=== PATIENT | female | born 1955 | race Caucasian/White ===

== ENCOUNTER 2017-03-01 20:53 | Inpatient (IN) | payer OTHER ==
[2017-03-01 20:55] VITALS: O2SAT 99
[2017-03-01] MEDS ORDERED: ceFAZolin 2 GM PREMIX 50 ML ONE (20:57)
[2017-03-01 21:01] VITALS: O2SAT 99
--- NOTE | 2017-03-01 21:08 | PD ---
HPI Chief Complaint: trauma alert Time Seen by Provider: 20:54 Travel History International Travel<30 days: No Contact w/Intl Traveler<30days: No History of Present Illness HPI The patient is a reportedly 61-year-old female who presents to the [facility] emergency department as a trauma alert after she fell at a local restaurant after standing up. According to bystanders it appeared that she passed out. The patient had been drinking alcohol. The patient was unresponsive at the scene with a GCS of 3 upon ambulance services arrival. The patient was provided supplemental nasal cannula O2 and maintained her saturations at 98-99%. The patient was noted to be hypertensive with a blood pressure 168/96 prior to arrival. The patient's blood sugar was reportedly within normal limits. The patient was placed in full C-spine immobilization on a backboard. A family member at the restaurant reported that the patient does have a history of aneurysms. In route to this facility, the patient became awake and alert although confused according to ambulance services. She was repeatedly saying, "don't let me ". On arrival, the patient becomes more awake and alert again and reports that she has a severe headache. The patient then developed a decreased level of consciousness again. Review of systems is not able to be obtained in this patient who has a decreased level of consciousness. [facility] Past Medical History Narrative Medical The patient's past medical history is reportedly significant for having a cerebral aneurysm. As the patient was observed in the emergency department, she became more awake and alert. The patient was able to recall her history. She reports that she has been diagnosed with 2 cerebral aneurysms that are being monitored for growth. She denies having any other history of hypertension, hyperlipidemia, diabetes, or prior history of cancer. The patient reports that she prefers natural remedies for treatment of medical problems. Past Surgical History Narrative Surgical The patient's past surgical history is unable to be obtained. As the patient became more awake and alert she was able to provide her history. She reports that she's had a history of a hysterectomy, rectocele and cystocele repair, bilateral foot surgery. Social History Alcohol Use: Yes (occasionally, however today she reports that she had one bourbon, and 2 glasses of wine) Tobacco Use: No Substance Use: No Allergies-Medications (Allergen,Severity, Reaction): Coded Allergies: Penicillins (Verified Allergy, Unknown, 03/01/17) Narrative Medication The patient reports that she takes multiple vitamins. She denies taking any prescribed medications. Review of Systems ROS Limitations: Intoxication, Altered Mental Status Physical Exam Narrative General: The patient is a well-developed well-nourished female in no acute distress. The patient is brought in on a back board in full c-spine immobilization by emergency services. Head and Neck exam: Head is normocephalic with evidence of trauma, hematoma formation over the left lateral eyebrow and over the left forehead. No step-off or crepitus. She does wince on palpation of the site. There is no increased facial bone motility on palpation. Eyes: EOMI, pupils are equal round and reactive to light. Nose: Midline septum with pink mucous membranes Mouth: Dentition unremarkable. Moist mucus membranes. Posterior oropharynx is not erythematous. No tonsillar hypertrophy. Uvula midline. Airway patent. Neck: The patient is immobilized in a cervical collar. No tracheal deviation. The trachea appears midline. Cardiovascular: Sinus tachycardia in the low 100s without murmurs, gallops, or rubs. No pulse deficit to the extremities on simultaneous auscultation and palpation of her radial artery. Lungs: Clear to auscultation bilaterally. No wheezes, rhonchi, or rales. No chest wall tenderness to palpation. No erythema or ecchymosis noted. No crepitus , step off, or flail segment noted. Abdomen: Soft, without tenderness to palpation in all 4 quadrants of the abdomen. No guarding, rebound, or rigidity. No erythema or ecchymosis noted. Extremities: No instability or pain noted on pelvic rock. No clubbing, cyanosis , or edema. 2+ pulses in all 4 extremities. No extremity tenderness or deformity noted on palpation or passive/ active range of motion. Back: The patient was log rolled off of the back board. No spinous process tenderness to palpation. No stepoff or crepitus noted. No costovertebral angle tenderness to palpation. No erythema or ecchymosis. Neurologic Exam: The patient has waxing and waning mentation. The patient occasionally awakens and moves all extremities equally with 5 over 5 strength. Initially, the patient had difficulty recalling her name, however she was later able to recall her first and last name. The patient is otherwise uncooperative with formal neurologic testing. The patient has an odor of alcohol about her. Skin Exam: No rash noted. Data Data Last Documented VS Vital Signs Date Time Temp Pulse Resp B/P (MAP) Pulse Ox O2 Delivery O2 Flow Rate FiO2 03/01/17 22:30 97 16 166/93 (117) 99 Nasal Cannula 2.00 Orders Orders I-Stat Profile (03/01/17 20:55) I-Stat Creatinine (03/01/17 20:55) Complete Blood Count With Diff (03/01/17 20:55) Prothrombin Time / Inr (Pt) (03/01/17 20:55) Act Partial Throm Time (Ptt) (03/01/17 20:55) Type And Screen (03/01/17 20:55) Fibrinogen (03/01/17 20:55) Alcohol (Ethanol) (03/01/17 20:55) Urinalysis - C+S If Indicated (03/01/17 20:55) Chest, Single Ap (03/01/17 20:55) Pelvis, Ap Only (Routine) (03/01/17 20:55) Ct Brain W/O Iv Contrast(Rout) (03/01/17 20:55) Ct Cerv Spine W/O Contrast (03/01/17 20:55) Ct Thorax/ Chest W Iv Contrast (03/01/17 20:55) Electrocardiogram (03/01/17 20:55) Iv Access Insert/Monitor (03/01/17 20:55) Ecg Monitoring (03/01/17 20:55) Oximetry (03/01/17 20:55) Oxygen Administration (03/01/17 20:55) Cefazolin 2 Gm Premix (Ancef 2 Gm Premix (03/01/17 20:57) Creatine Kinase (Cpk) (03/01/17 20:58) Troponin I (03/01/17 20:58) Hepatic Functional Panel (03/01/17 20:58) Ckmb (Isoenzyme) Profile (03/01/17 20:58) Ct Facial Bones W/O Iv Cont (03/01/17 21:05) Iohexol 350 Inj (Omnipaque 350 Inj) (03/01/17 21:18) Azithromycin Inj (Zithromax Inj) (03/01/17 22:45) Admit Order (Ed Use Only) (03/01/17 22:53) Labs Laboratory Tests Test 03/01/17 21:00 White Blood Count 8.9 TH/MM3 Red Blood Count 4.70 MIL/MM3 Hemoglobin 14.7 GM/DL Bedside Hemoglobin 14.6 G/DL Hematocrit 42.6 % Bedside Hematocrit 43.0 % Mean Corpuscular Volume 90.6 FL Mean Corpuscular Hemoglobin 31.1 PG Mean Corpuscular Hemoglobin Concent 34.4 % Red Cell Distribution Width 14.3 % Platelet Count 385 TH/MM3 Mean Platelet Volume 7.2 FL Neutrophils (%) (Auto) 42.3 % Lymphocytes (%) (Auto) 41.7 % Monocytes (%) (Auto) 10.0 % Eosinophils (%) (Auto) 4.0 % Basophils (%) (Auto) 2.0 % Neutrophils # (Auto) 3.8 TH/MM3 Lymphocytes # (Auto) 3.7 TH/MM3 Monocytes # (Auto) 0.9 TH/MM3 Eosinophils # (Auto) 0.4 TH/MM3 Basophils # (Auto) 0.2 TH/MM3 CBC Comment DIFF FINAL Differential Comment Prothrombin Time 10.0 SEC Prothromb Time International Ratio 1.0 RATIO Activated Partial Thromboplast Time 27.6 SEC Fibrinogen 548 mg/dL Bedside Sodium 140 MMOL/L Bedside Potassium 3.9 MMOL/L Bedside Chloride 107 MMOL/L Bedside Blood Urea Nitrogen 7 MG/DL Bedside Creatinine 0.8 MG/DL Bedside Glucose 107 MG/DL Total Bilirubin 0.2 MG/DL Direct Bilirubin 0.1 MG/DL Indirect Bilirubin 0.1 MG/DL Aspartate Amino Transf (AST/SGOT) 19 U/L Alanine Aminotransferase (ALT/SGPT) 24 U/L Alkaline Phosphatase 103 U/L Total Creatine Kinase 90 U/L Troponin I LESS THAN 0.02 NG/ML Total Protein 8.2 GM/DL Albumin 3.6 GM/DL Ethyl Alcohol Level 245 MG/DL [facility] Medical Screen Exam Complete: Yes Emergency Medical Condition: Yes Medical Record Reviewed: Yes Interpretation(s) Vital Signs Date Time Temp Pulse Resp B/P (MAP) Pulse Ox O2 Delivery O2 Flow Rate FiO2 03/01/17 21:23 98 Nasal Cannula 2.00 03/01/17 21:22 98 Nasal Cannula 2.00 Differential Diagnosis Intracranial hemorrhage, versus vasovagal syncope, versus facial bone fracture, versus cervical spine injury, versus cardiac arrhythmia causing syncope Narrative Course During the course of the patients emergency department visit, the patient was placed on a court monitor with oximetry and frequent blood pressure monitoring. The patient had IV access obtained and blood work sent for analysis. An i-STAT with creatinine was ordered. The trauma surgeon, Dr. Garcia arrived at the bedside to assess the patient with me. The patient was initially provided normal saline at O, and update to her tetanus, Ancef 2 g IV. The patients laboratory studies were reviewed and remarkable for I-stat reveals a hemoglobin of 14.6 glucose 107, creatinine 0.8, CBC is remarkable for a white count is 8.9, platelets 385 with 10 monocytes, PT PTT within normal limits, fibrinogen 548, alcohol level is 245, liver function tests are within normal limits, CPK 90, troponin I less than 0.02. An ECG was done that shows a sinus rhythm heart rate of 98, QRS duration 86 ms, QTC 427 ms, no acute ST segment elevation, T waves are inverted in lead 3. Radiology studies were reviewed and remarkable for a chest x-ray, pelvis x-ray that showed no acute abnormality. CT scan of the brain that showed no acute abnormality, except a left frontal supraorbital soft tissue hematoma. CT scan of the C-spine showed degenerative changes, no other acute abnormality. CT scan of the chest shows slight bilateral upper lobe infiltrates and/or contusions, repeat non-contrast CT is suggested 3 months as a conservative follow-up. On further questioning of the patient after CT scan finding shows traits and bilateral upper lung brennan she does report that over the last 2 weeks she's had cough, congestion. He reports that her cough is been dry in character. She denies having any known fevers. The patient will be treated with azithromycin for possible underlying pneumonia. The patient has been cleared by trauma surgery for trauma requiring admission to the hospital, however the patient will be admitted to the hospital for evaluation of syncopal event to the medical service. The patients results were discussed with the patient, including the plan of care. I explained that further testing and/ or monitoring is indicated based on the patients history, examination, and/ or laboratory findings. Therefore, I recommended admission for additional evaluation. The patient expressed understanding and was agreeable with this plan. The patient was admitted to the hospital in stable condition and [facility] I was called back into the room by the patient's nurse to reassess the patient when the patient reported having weakness initially in her left upper extremity and left lower extremity, however she then reported weakness also in the right upper extremity. The patient's reported concerned that she may be experiencing an allergic reaction to the Zithromax as it was a few minutes into infusing. The Zithromax was stopped. The patient was reassessed and had periods of waxing and waning mentation again where she appeared to be unresponsive. The patient also appeared to be holding her breath intermittently although she was maintaining her sats at 99-100%. The patient on reexamination when she was awake again, revealed no focal findings. The patient does however have a history of cerebral aneurysm, I discussed the patient's case again with the patient's admitting physician was made aware of these symptoms. She did agree with the plan to proceed with CTA of the head and neck. 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 CTA of the neck showed no acute abnormality. Trauma Alert - Level One Trauma Alert Level One: Full trauma team activate, Patient evaluated, Trauma surgeon summoned Time Surgeon Summoned: 20:35 (Surgeon asked to come in) Physician Communication The patient's case including history, pertinent physical examination findings, and laboratory studies were discussed with Dr. Stallings. It was agreed that [facility] Diagnosis Diagnosis: Primary Impression: Syncope Qualified Codes: R55 - Syncope and collapse Additional Impressions: Head injury Qualified Codes: S09.90XA - Unspecified injury of head, initial encounter Lung infiltrate on CT Alcohol intoxication Qualified Codes: F10.929 - Alcohol use, unspecified with intoxication, unspecified Altered mental status Qualified Codes: R41.0 - Disorientation, unspecified Admitting Physician Requests: Observation Moon Ortiz MD Mar 01, 2017 21:08
--- NOTE | 2017-03-01 21:10 | RADRPT ---
EXAM DATE/TIME: 03/01/2017 20:56 [facility] COMPARISON: No previous studies available for comparison. INDICATIONS : Trauma alert. Fall from a standing position. MEDICAL HISTORY : Unobtainable. SURGICAL HISTORY : Unobtainable. ENCOUNTER: Initial ACUITY: 1 day PAIN SCORE: Non-responsive. LOCATION: Pelvis. FINDINGS: No definite fractures, or dislocations are identified. No definite lytic or sclerotic lesion is seen . CONCLUSION: Unremarkable study. Pablo Tee MD on March 01, 2017 at 21:08 Board Certified Radiologist. This report was verified electronically.
--- NOTE | 2017-03-01 21:10 | RADRPT ---
EXAM DATE/TIME: 03/01/2017 20:56 [facility] COMPARISON: No previous studies available for comparison. INDICATIONS : Trauma alert. Fall from standing position. MEDICAL HISTORY : Unobtainable. SURGICAL HISTORY : Unobtainable. ENCOUNTER: Initial ACUITY: 1 day PAIN SCORE: Non-responsive. LOCATION: Bilateral chest FINDINGS: The lungs are clear without infiltrate, nodule, or mass. There is no appreciable pleural effusion fo r technique. Heart and mediastinum are unremarkable. CONCLUSION: No acute cardiopulmonary disease. Pablo Tee MD on March 01, 2017 at 21:07 Board Certified Radiologist. This report was verified electronically.
--- NOTE | 2017-03-01 21:15 | RADRPT ---
EXAM DATE/TIME: 03/01/2017 21:05 [facility] COMPARISON: No previous studies available for comparison. INDICATIONS : Trauma; fall. RADIATION DOSE: 53.88 CTDIvol (mGy) MEDICAL HISTORY : Non-responsive. SURGICAL HISTORY : Non-responsive. ENCOUNTER: Initial ACUITY: 1 day PAIN SCALE: Non-responsive LOCATION: cranial TECHNIQUE: Multiple contiguous axial images were obtained of the head. Using automated exposure control and adjustment of the mA and/or kV according to patient size, radiation dose was kept as low as reasonably achievable to obtain optimal diagnostic quality images. DICOM format image data is av ailable electronically for review and comparison. FINDINGS: There is no evidence for intracranial hemorrhage, mass effect, mass lesions, edema, or extra-axial fl uid collections. The visualized bony structures appear intact. The ventricles are normal size for t he patient's age. There are no signs of acute infarction for technique. Approximate 2.8 cm soft tiss ue hematoma is present in the left frontal region. CONCLUSION: Soft tissue hematoma on the left, otherwise unremarkable. Pablo Tee MD on March 01, 2017 at 21:12 Board Certified Radiologist. This report was verified electronically.
[2017-03-01] MEDS ORDERED: IOHEXOL 350 MG/ML 10 ML VIAL (for RAD DIAG) IVCONTRAST ONE (21:18)
--- NOTE | 2017-03-01 21:21 | RADRPT ---
EXAM DATE/TIME: 03/01/2017 21:05 [facility] COMPARISON: No previous studies available for comparison. INDICATIONS : Trauma; fall. RADIATION DOSE: 21.48 CTDIvol (mGy) MEDICAL HISTORY : Non-responsive. SURGICAL HISTORY : Non-responsive. ENCOUNTER: Initial ACUITY: 1 day PAIN SCALE: Non-responsive LOCATION: neck TECHNIQUE: Volumetric scanning of the cervical spine was performed. Multiplanar reconstructions in the sagittal, coronal and oblique axial planes were performed. Using automated exposure control and adjustment o f the mA and/or kV according to patient size, radiation dose was kept as low as reasonably achievable to obtain optimal diagnostic quality images. DICOM format image data is available electronically f or review and comparison. FINDINGS: No significant subluxation or soft tissue swelling is seen. No definite fracture is seen for techniqu e. C2-C3: No appreciable compromised to the thecal sac, exiting nerve roots are seen. The neural elif ana are patent bilaterally. No appreciable thecal sac stenosis is seen. C3-C4: No appreciable compromised to the thecal sac, exiting nerve roots are seen. The neural elif ana are patent bilaterally. No appreciable thecal sac stenosis is seen. C4-C5: No appreciable compromised to the thecal sac, exiting nerve roots are seen. The neural elif ana are patent bilaterally. No appreciable thecal sac stenosis is seen. C5-C6: No appreciable compromised to the thecal sac, exiting nerve roots are seen. The neural elif ana are patent bilaterally. No appreciable thecal sac stenosis is seen. Slight degenerative changes are seen within the disc space and facets. Slight bulging disc and hypertrophic changes are seen with indentation on the thecal sac and no significant compromise to the thecal sac or the exiting nerve r oots. C6-C7: No appreciable compromised to the thecal sac, exiting nerve roots are seen. The neural elif ana are patent bilaterally. No appreciable thecal sac stenosis is seen. C7-T1: No appreciable compromised to the thecal sac, exiting nerve roots are seen. The neural elif ana are patent bilaterally. No appreciable thecal sac stenosis is seen CONCLUSION: Slight degenerative spondylosis without any significant compromise to the thecal sac or the exiting nerve roots. Pablo Tee MD on March 01, 2017 at 21:16 Board Certified Radiologist. This report was verified electronically.
--- NOTE | 2017-03-01 21:26 | RADRPT ---
EXAM DATE/TIME: 03/01/2017 21:13 [facility] COMPARISON: No previous studies available for comparison. INDICATIONS : Trauma; fall. IV CONTRAST: 75 cc Omnipaque 350 (iohexol) IV RADIATION DOSE: 7.36 CTDIvol (mGy) MEDICAL HISTORY : Non-responsive. SURGICAL HISTORY : Non-responsive. ENCOUNTER: Initial ACUITY: 1 day PAIN SCALE: Non-responsive LOCATION: chest TECHNIQUE: Volumetric scanning of the chest was performed. Using automated exposure control and adjustment of t he mA and/or kV according to patient size, radiation dose was kept as low as reasonably achievable to obtain optimal diagnostic quality images. DICOM format image data is available electronically for review and comparison. Follow-up recommendations for detected pulmonary nodules are based at a minimum on nodule size and pa tient risk factors according to Fleischner Society Guidelines. FINDINGS: Slight focal infiltrate or contusion is present in right upper lobe posteriorly and lingula. No defi nite fracture is seen for technique. No definite pneumothorax is seen for technique.There is no pleur al effusion. No appreciable pathological adenopathy is seen within the mediastinum. There are simple cysts in the liver the largest measures 1.8 cm in size. CONCLUSION: Slight bilateral upper lobe infiltrates and/or contusions, repeat noncontrast chest C T is suggested in 3 months as a conservative follow up.. Pablo Tee MD on March 01, 2017 at 21:20 Board Certified Radiologist. This report was verified electronically.
--- NOTE | 2017-03-01 21:29 | RADRPT ---
EXAM DATE/TIME: 03/01/2017 21:05 [facility] COMPARISON: No previous studies available for comparison. INDICATIONS : Trauma; fall. RADIATION DOSE: 51.68 CTDIvol (mGy) MEDICAL HISTORY : Non-responsive. SURGICAL HISTORY : Non-responsive. ENCOUNTER: Initial ACUITY: 1 day PAIN SCORE: Non-responsive LOCATION: facial TECHNIQUE: Volumetric scanning of the facial bones was performed. Using automated exposure control and adjustme nt of the mA and/or kV according to patient size, radiation dose was kept as low as reasonably achiev able to obtain optimal diagnostic quality images. DICOM format image data is available electronicall y for review and comparison. FINDINGS: No definite fractures, or dislocations are identified. No definite lytic or sclerotic lesion is seen . Left frontal soft tissue scalp hematoma is identified. CONCLUSION: Left frontal supraorbital soft tissue hematoma. Pablo Tee MD on March 01, 2017 at 21:25 Board Certified Radiologist. This report was verified electronically.
[2017-03-01 21:30] VITALS: BP 167/90; PULSE 113; RESP 16; O2SAT 100
[2017-03-01 21:34] LABS: AUTOMATED NEUTROPHIL # 3.8 TH/MM3 (1.8-7.7); BASOPHIL # 0.2 TH/MM3 (0-0.2); EOSINOPHIL # 0.4 TH/MM3 (0-0.4); HEMATOCRIT 42.6 % (35.0-46.0); HEMOGLOBIN 14.7 GM/DL (11.6-15.3); LYMPH % 41.7 % (9.0-44.0); LYMPHOCYTE # 3.7 TH/MM3 (1.0-4.8); MEAN CELL VOLUME 90.6 FL (80.0-100.0); MEAN CORPUSCULAR HEMOGLOBIN 31.1 PG (27.0-34.0); MEAN CORPUSCULAR HGB CONC 34.4 % (32.0-36.0); MEAN PLATELET VOLUME 7.2 FL (7.0-11.0); MONOCYTE # 0.9 TH/MM3 (0-0.9); NEUT % 42.3 % (16.0-70.0); PLATELET COUNT 385 TH/MM3 (150-450); RED CELL DISTRIBUTION WIDTH 14.3 % (11.6-17.2); WHITE BLOOD COUNT 8.9 TH/MM3 (4.0-11.0)
[2017-03-01 21:59] LABS: ALBUMIN 3.6 GM/DL (3.4-5.0); ALKALINE PHOSPHATASE 103 U/L (45-117); ALT (GPT) 24 U/L (10-53); AST (GOT) 19 U/L (15-37); DIRECT BILIRUBIN ADULT 0.1 MG/DL (0.0-0.2); INDIRECT BILIRUBIN 0.1 MG/DL (0.0-0.8); TOTAL BILIRUBIN ADULT 0.2 MG/DL (0.2-1.0); TOTAL PROTEIN 8.2 GM/DL (6.4-8.2); TROPONIN I LESS THAN 0.02 NG/ML (0.02-0.05)
[2017-03-01 22:11] VITALS: BP 177/99; PULSE 100; RESP 16; O2SAT 96
[2017-03-01 22:30] VITALS: BP 166/93; PULSE 97; RESP 16; O2SAT 99
[2017-03-01] MEDS ORDERED: AZITHROMYCIN INJ 500 MG in SODIUM CHLOR 0.9% 250 ML INJ 250 ML IV ONE (22:45)
--- NOTE | 2017-03-01 22:57 | HHI.HP ---
HPI Service [facility] Primary Care Physician Unknown Admission Diagnosis Syncope, bilateral lung infiltrates Diagnoses: (1) Syncope Diagnosis: Principal (2) Closed head injury Diagnosis: Principal (3) Alcohol intoxication Diagnosis: Principal (4) PNA (pneumonia) Diagnosis: Principal (5) Syncope Diagnosis: Principal (6) Upper extremity weakness Diagnosis: Principal Travel History International Travel<30 Days: No Contact w/Intl Traveler <30 Da: No History of Present Illness This is a 61-year-old female with a PMH of Cerebral Aneurysm who was brought to the ER as a Trauma Alert after fall from standing position. Pt was apparently out having dinner with and noted to have syncopal event upon standing. +Alcohol intoxication, Alcohol 245. No reported seizure-like activity. Upon EMS arrival, pt unresponsive, not following commands, however mental status back to baseline upon arrival to ER. CT Head w/ soft tissue hematoma on the left, CT C-spine no acute compromise. CT Maxillofacial with left frontal supraorbital soft tissue hematoma. CXR with no acute findings. CT Chest with slight bilateral upper lobe infiltrate and or contusions, recommendation for three-month follow-up. Pelvis X-ray unremarkable. Patient was evaluated by Dr. Rockwell and cleared for discharge from a trauma standpoint. While in ER, pt and report acute episode of "paralysis" to bilateral upper extremities after receiving Zithro IV. states pt had similar event following Propofol for Colonoscopy. On exam, pt not answering questions or following commands, hyperventilating. Episode lasted few minutes, now pt back to baseline, able to converse, no neuro deficits. CTA Head pending. Review of Systems Except as stated in HPI: all other systems reviewed are Neg ROS: 14 point review of systems otherwise negative. Past Family Social History Past Medical History PMH: Cerebral Aneurysm Past Surgical History PAST SURGICAL HISTORY: Hysterectomy, Rectocele, Cystocele, Bilateral Foot Surgery Allergies: Coded Allergies: Penicillins (Verified Allergy, Unknown, 03/01/17) Family History PAST FAMILY HISTORY: Reviewed. No h/o DM or CAD Social History PAST SOCIAL HISTORY: Occasional alcohol, 2-3 glasses of wine and glass of bourbon tonight. Negative for tobacco or drugs. Physical Exam Vital Signs Vital Signs Date Time Temp Pulse Resp B/P (MAP) Pulse Ox O2 Delivery O2 Flow Rate FiO2 03/01/17 22:11 100 16 177/99 (125) 96 Room Air 03/01/17 21:23 98 Nasal Cannula 2.00 03/01/17 21:22 98 Nasal Cannula 2.00 03/01/17 21:01 99 3.00 03/01/17 20:55 99 3.00 03/01/17 20:55 99 Nasal Cannula 3.00 Physical Exam PE: GENERAL: Middle-aged white female in no acute distress, however tearful, reports she is cold. at bedside. HEENT: PERRLA, EOMI. No scleral icterus or conjunctival pallor. No lid lag or facial droop. Left forehead hematoma CARDIOVASCULAR: Regular rate and rhythm. No obvious murmurs to auscultation. No chest tenderness to palpation. RESPIRATORY: No obvious rhonchi or wheezing. Clear to auscultation. Breath sounds equal bilaterally. GASTROINTESTINAL: Abdomen soft, non-tender, nondistended. BS normal. MUSCULOSKELETAL: Extremities without clubbing, cyanosis, or edema. No obvious deformities. NEUROLOGICAL: Awake, alert and oriented x4. No focal neurologic deficits. Moving both upper and lower extremities spontaneously. Laboratory Laboratory Tests Test 03/01/17 21:00 White Blood Count 8.9 Red Blood Count 4.70 Hemoglobin 14.7 Bedside Hemoglobin 14.6 Hematocrit 42.6 Bedside Hematocrit 43.0 Mean Corpuscular Volume 90.6 Mean Corpuscular Hemoglobin 31.1 Mean Corpuscular Hemoglobin Concent 34.4 Red Cell Distribution Width 14.3 Platelet Count 385 Mean Platelet Volume 7.2 Neutrophils (%) (Auto) 42.3 Lymphocytes (%) (Auto) 41.7 Monocytes (%) (Auto) 10.0 Eosinophils (%) (Auto) 4.0 Basophils (%) (Auto) 2.0 Neutrophils # (Auto) 3.8 Lymphocytes # (Auto) 3.7 Monocytes # (Auto) 0.9 Eosinophils # (Auto) 0.4 Basophils # (Auto) 0.2 CBC Comment DIFF FINAL Differential Comment Prothrombin Time 10.0 Prothromb Time International Ratio 1.0 Activated Partial Thromboplast Time 27.6 Fibrinogen 548 Bedside Sodium 140 Bedside Potassium 3.9 Bedside Chloride 107 Bedside Blood Urea Nitrogen 7 Bedside Creatinine 0.8 Bedside Glucose 107 Total Bilirubin 0.2 Direct Bilirubin 0.1 Indirect Bilirubin 0.1 Aspartate Amino Transf (AST/SGOT) 19 Alanine Aminotransferase (ALT/SGPT) 24 Alkaline Phosphatase 103 Total Creatine Kinase 90 Troponin I LESS THAN 0.02 Total Protein 8.2 Albumin 3.6 Ethyl Alcohol Level 245 Result Diagram: 03/01/172099 Caprini VTE Risk Assessment Caprini VTE Risk Assessment: No/Low Risk (score <= 1) Caprini Risk Assessment Model Point Value = 1 Point Value = 2 Point Value = 3 Point Value = 5 Age 41-60 Minor surgery BMI > 25 kg/m2 Swollen legs Varicose veins or History of unexplained or recurrent spontaneous Oral contraceptives or hormone replacement Sepsis (< 1 month) Serious lung disease, including pneumonia (< 1 month) Abnormal pulmonary function Acute myocardial infarction Congestive heart failure (< 1 month) History of inflammatory bowel disease Medical patient at bed rest Age 61-74 Arthroscopic surgery Major open surgery (> 45 min) Laparoscopic surgery (> 45 min) Malignancy Confined to bed (> 72 hours) Immobilizing plaster cast Central venous access Age >= 75 History of VTE Family history of VTE Factor V Leiden Prothrombin [id number] Lupus anticoagulant Anticardiolipin antibodies Elevated serum homocysteine Heparin-induced thrombocytopenia Other congenital or acquired thrombophilia Stroke (< 1 month) Elective arthroplasty Hip, pelvis, or leg fracture Acute spinal cord injury (< 1 month) Prophylaxis Regimen Total Risk Factor Score Risk Level Prophylaxis Regimen 0-1 Low Early ambulation 2 Moderate Order ONE of the following: *Sequential Compression Device (SCD) *Heparin 5000 units SQ BID 3-4 Higher Order ONE of the following medications: *Heparin 5000 units SQ TID *Enoxaparin/Lovenox 40 mg SQ daily (WT < 150 kg, CrCl > 30 mL/min) *Enoxaparin/Lovenox 30 mg SQ daily (WT < 150 kg, CrCl > 10-29 mL/min) *Enoxaparin/Lovenox 30 mg SQ BID (WT < 150 kg, CrCl > 30 mL/min) AND/OR *Sequential Compression Device (SCD) 5 or more Highest Order ONE of the following medications: *Heparin 5000 units SQ TID (Preferred with Epidurals) *Enoxaparin/Lovenox 40 mg SQ daily (WT < 150 kg, CrCl > 30 mL/min) *Enoxaparin/Lovenox 30 mg SQ daily (WT < 150 kg, CrCl > 10-29 mL/min) *Enoxaparin/Lovenox 30 mg SQ BID (WT < 150 kg, CrCl > 30 mL/min) AND *Sequential Compression Device (SCD) Assessment and Plan Problem List: (1) Syncope ICD Code: R55 - Syncope and collapse Status: Acute (2) Closed head injury ICD Code: S09.90XA - Unspecified injury of head, initial encounter (3) PNA (pneumonia) ICD Code: J18.9 - Pneumonia, unspecified organism (4) Upper extremity weakness ICD Code: R29.898 - Other symptoms and signs involving the musculoskeletal system (5) Alcohol intoxication ICD Code: F10.929 - Alcohol use, unspecified with intoxication, unspecified Assessment and Plan A/P: 1. Syncope: acute syncopal event upon standing, no h/o similar symptoms. No witnessed seizure-like activity. Initial trop negative, check serial cardiac enzymes to eval for possible underlying ischemia. Check Echo to eval for cardiomyopathy. Telemetry. 2. Closed Head Injury: arrived as Trauma Alert, CT Head w/ left forehead hematoma, CT C-Spine w/ no acute findings, CT Maxillofacial w/ left frontal supraorbital soft tissue hematoma, Pelvic X-ray negative, images reviewed by me. Neuro Checks q4h. Analgesics as needed. 3. PNA: CT Chest w/ bilateral upper lobe infiltrates vs contusions, recommendation for outpatient follow up in 3mo, images reviewed by me. Afebrile , no leukocytosis however pt does report cough and congestion. Possible allergic reaction to Zithro while in ER, will discontinue. Start Levaquin IV instead. 4. Upper Extremity Weakness: Reports acute onset of bilateral upper extremity "paralysis", CT Head negative as above. Pt w/ waxing/waning mentation while in ER, possibly compounded by acute alcohol intoxication or underlying psychiatric condition. No clinical signs of stroke at this time. CTA Head pending in light of h/o previous aneurysm, will follow up results. 5. Alcohol Intoxication: Reports occasional alcohol ingestion, tonight w/ 2-3 glasses of wine and 1 glass of bourbon. IVF for hydration, Ativan prn if needed. 6. DVT Prophylaxis: SCD/Teds. 7. Social work for d/c planning as needed. 8. Records/labs/imaging reviewed by me, case discussed at length w/ ER physician and [employer] HELPER. Physician Certification 2 Midnight Certification Type: Admission for Inpatient Services Order for Inpatient Services The services are ordered in accordance with Medicare regulations or non- Medicare payer requirements, as applicable. In the case of services not specified as inpatient-only, they are appropriately provided as inpatient services in accordance with the 2-midnight benchmark. Estimated LOS (days): 2 days is the estimated time the patient will need to remain in the hospital, assuming treatment plan goals are met and no additional complications. Post-Hospital Plan: Not yet determined Problem Qualifiers (1) Syncope: Qualified Codes: R55 - Syncope and collapse Rosaura Stallings MD Mar 01, 2017 22:57
[2017-03-01 23:00] VITALS: BP 156/89; PULSE 98; RESP 16; O2SAT 99
[2017-03-01] MEDS ORDERED: MORPHINE SULFATE 2 MG/ML INJ IV PUSH PRN (23:00)
[2017-03-01] MEDS ORDERED: SODIUM CHLORIDE 0.9% FLUSH 10 ML FLUSH IV FLUSH PRN (23:00)
[2017-03-01] MEDS ORDERED: BISACODYL 10 MG SUPP RECTAL PRN (23:00)
[2017-03-01] MEDS ORDERED: MAGNESIUM HYDROXIDE SUSP 30 ML CUP PO PRN (23:00)
[2017-03-01] MEDS ORDERED: ACETAMINOPHEN/HYDROcodone 325 MG/5 MG TAB PO PRN (23:00)
[2017-03-01] MEDS ORDERED: ONDANSETRON HCL 4 MG/2 ML VIAL IVP PRN (23:00)
[2017-03-01] MEDS ORDERED: LACTULOSE SYRUP 20 GM/30 ML CUP PO PRN (23:00)
[2017-03-01] MEDS ORDERED: SENNOSIDES 8.6 MG TAB PO PRN (23:00)
[2017-03-02] VITALS (7 sets, daily range): BP systolic 127–197; BP diastolic 75–86; PULSE 82–96; RESP 16–18; TEMP 96.2–97.7; O2SAT 94–98
[2017-03-02] MEDS ORDERED: IOHEXOL 350 MG/ML 10 ML VIAL (for RAD DIAG) IVCONTRAST ONE (00:20)
[2017-03-02] MEDS: SODIUM CHLOR 0.9% 1000 ML INJ 1,000 ML IV SCH ×3 (00:31→21:15)
--- NOTE | 2017-03-02 00:32 | RADRPT ---
EXAM DATE/TIME: 03/01/2017 23:36 [facility] COMPARISON: CT BRAIN W/O CONTRAST, March 01, 2017, 21:05. INDICATIONS : Trauma; fall. IV CONTRAST: 75 cc Omnipaque 350 (iohexol) IV RADIATION DOSE: 10.44 CTDIvol (mGy) ; Combined studies MEDICAL HISTORY : Non-responsive. SURGICAL HISTORY : Non-responsive. ENCOUNTER: Initial ACUITY: 1 day PAIN SCALE: Non-responsive LOCATION: cranial TECHNIQUE: Volumetric scanning was performed using a multi-row detector CT scanner. The data was post processed with a variety of visualization algorithms including full volume maximum intensity projection, multi -planar sliding thin slab reformation, curved planar reformation, and surface rendering techniques. Using automated exposure control and adjustment of the mA and/or kV according to patient size, radiat ion dose was kept as low as reasonably achievable to obtain optimal diagnostic quality images. DICO M format image data is available electronically for review and comparison. 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 No other aneurysms are demonstrated. Intracranial arteries have normal caliber. No stenoses or thrombosis. CONCLUSION: Small basilar tip aneurysm as above. Otherwise normal intracranial arteries. Eric Gunn MD on March 02, 2017 at 0:26 Board Certified Radiologist. This report was verified electronically.
--- NOTE | 2017-03-02 01:01 | RADRPT ---
EXAM DATE/TIME: 03/01/2017 23:37 [facility] COMPARISON: CTA BRAIN W 3D RECON, March 01, 2017, 23:36. CT CERVICAL SPINE W/O CONTRAST, March 01, 2017, 2 1:05. INDICATIONS : Trauma; fall. IV CONTRAST: 75 cc Omnipaque 350 (iohexol) IV ; Cumulative dose for multiple exams. RADIATION DOSE: 10.44 CTDIvol (mGy) ; Combined studies MEDICAL HISTORY : Non-responsive. SURGICAL HISTORY : Non-responsive. ENCOUNTER: Initial ACUITY: 1 day PAIN SCALE: Non-responsive LOCATION: neck Elevated flow velocities and ICA/CCA ratios have been found to correlate with increased degrees of vessel stenosis, calculated as percentage of diameter relative to a normal segment of distal ICA/CCA. TECHNIQUE: Volumetric scanning was performed using a multirow detector CT scanner. The data was post processed with a variety of visualization algorithms including full-volume maximum intensity projection, multip lanar sliding thin-slab reformation, curved-planar reformation, and surface-rendering techniques. Us ing automated exposure control and adjustment of the mA and/or kV according to patient size, radiatio n dose was kept as low as reasonably achievable to obtain optimal diagnostic quality images. DICOM f ormat image data is available electronically for review and comparison. FINDINGS: AORTIC ARCH: There is a three-vessel origin of the great vessels from the aorta. No evidence of ostial narrowing. RIGHT CAROTID: The common carotid artery is intact. The carotid bulb has a normal configuration without ulceration o r narrowing. The internal carotid artery lumen is smooth without stenosis. The external carotid oliva ry is intact. LEFT CAROTID: The common carotid artery is intact. The carotid bulb has a normal configuration without ulceration or narrowing. The internal carotid artery lumen is smooth without stenosis. The external carotid ar melody is intact. VERTEBRALS: The vertebral arteries have a symmetric diameter. No stenotic lesions are seen. CONCLUSION: Normal carotid CTA. Eric Gunn MD on March 02, 2017 at 0:58 Board Certified Radiologist. This report was verified electronically.
[2017-03-02] MEDS ORDERED: AZTREONAM INJ 1,000 MG in SODIUM CHLORIDE 0.9% INJ 100 ML IV SCH (06:00)
[2017-03-02] MEDS: ACETAMINOPHEN 325 MG TAB PO PRN ×2 (07:05→15:31)
--- NOTE | 2017-03-02 07:10 | HHI.PR ---
Subjective Remarks Patient seen and examined this morning. Vitals are stable and afebrile. She denies CP or difficulty breathing. Endorses facial pain. States she needs to go home today because she has two dogs. Doesn't remember what happened yesterday but states she blacked out when she stood from standing. This has never happened to her before. Objective Vital Signs Date Time Temp Pulse Resp B/P (MAP) Pulse Ox O2 Delivery O2 Flow Rate FiO2 03/02/17 04:00 96.5 88 18 127/81 (96) 96 03/02/17 00:00 96.2 96 18 154/76 (102) 98 03/02/17 00:00 03/01/17 23:00 98 16 156/89 (111) 99 Nasal Cannula 2.00 03/01/17 22:30 97 16 166/93 (117) 99 Nasal Cannula 2.00 03/01/17 22:11 100 16 177/99 (125) 96 Room Air 03/01/17 21:30 113 16 167/90 (115) 100 Nasal Cannula 2.00 03/01/17 21:23 98 Nasal Cannula 2.00 03/01/17 21:22 98 Nasal Cannula 2.00 03/01/17 21:01 99 3.00 03/01/17 20:55 99 3.00 03/01/17 20:55 99 Nasal Cannula 3.00 Result Diagram: 03/01/17 2100 Imaging Last Impressions Maxillofacial CT 03/01/172104 Signed Impressions: Service Date/Time: Wednesday, March 01, 2017 21:05 - CONCLUSION: Left frontal supraorbital soft tissue hematoma. Pablo Tee MD Pelvis X-Ray 03/01/172054 Signed Impressions: Service Date/Time: Wednesday, March 01, 2017 20:56 - CONCLUSION: Unremarkable study. Pablo Tee MD Head CT 03/01/172054 Signed Impressions: Service Date/Time: Wednesday, March 01, 2017 21:05 - CONCLUSION: Soft tissue hematoma on the left, otherwise unremarkable. Pablo Tee MD Chest X-Ray 03/01/172054 Signed Impressions: Service Date/Time: Wednesday, March 01, 2017 20:56 - CONCLUSION: No acute cardiopulmonary disease. Pablo Tee MD Chest CT 03/01/172054 Signed Impressions: Service Date/Time: Wednesday, March 01, 2017 21:13 - CONCLUSION: Slight bilateral upper lobe infiltrates and/or contusions, repeat noncontrast chest CT is suggested in 3 months as a conservative follow up.. Pablo Tee MD Cervical Spine CT 03/01/172054 Signed Impressions: Service Date/Time: Wednesday, March 01, 2017 21:05 - CONCLUSION: Slight degenerative spondylosis without any significant compromise to the thecal sac or the exiting nerve roots. Pablo Tee MD Neck CTA 03/01/17 Signed Impressions: Service Date/Time: Wednesday, March 01, 2017 23:37 - CONCLUSION: Normal carotid CTA. Eric Gunn MD Head CTA 03/01/17 Signed Impressions: Service Date/Time: Wednesday, March 01, 2017 23:36 - CONCLUSION: Small basilar tip aneurysm as above. Otherwise normal intracranial arteries. Eric Gunn MD Other Results GENERAL: nad SKIN: Warm and dry. Left forehead hematoma HEAD: Traumatic. EYES: No scleral icterus. No injection or drainage. NECK: Supple, trachea midline. No JVD or lymphadenopathy. CARDIOVASCULAR: Regular rate and rhythm without murmurs, gallops, or rubs. RESPIRATORY: Breath sounds equal bilaterally. No accessory muscle use. GASTROINTESTINAL: Abdomen soft, non-tender, nondistended. MUSCULOSKELETAL: No cyanosis, or edema. No calf tenderness. BACK: Nontender without obvious deformity. A/P Problem List: (1) Syncope ICD Code: R55 - Syncope and collapse Status: Acute (2) Head injury ICD Code: S09.90XA - Unspecified injury of head, initial encounter Status: Acute (3) Upper extremity weakness ICD Code: R29.898 - Other symptoms and signs involving the musculoskeletal system (4) Alcohol intoxication ICD Code: F10.929 - Alcohol use, unspecified with intoxication, unspecified Assessment and Plan This is a 61-year-old female with Past medical significant for cerebral aneurysm was brought to the ER as a trauma alert after a fall. Syncope - Apparently the patient fell from standing, there is no witnessed seizure activity - ACS rule out pending - Echo pending - Currently on telemetry Head injury - Imaging above, significant for left forehead and supraorbital hematoma. - Analgesics - Monitor, no surgical intervention at this time Upper extremity weakness - Reported some bilateral upper extremity paralysis in the ER yesterday - Mentation was reported to be waxing and waning, likely related to the alcohol intoxication versus underlying psych vs other - CTA of head to evaluate aneurysm was performed, small basilar tip aneurysm was noted. Abnormal chest CT - CT chest showed bilateral upper lobe infiltrates versus contusions, will need to be repeated as an outpatient in 3 months Alcohol intoxication - Blood alcohol level 245 on admission - Ativan when necessary Discharge Planning Pending clinical improvement and pending ECHO results. Problem Qualifiers (1) Syncope: Qualified Codes: R55 - Syncope and collapse (2) Head injury: Qualified Codes: S09.90XA - Unspecified injury of head, initial encounter Allie Patton MD Mar 02, 2017 07:10
[2017-03-02 08:45] LABS: BASOPHIL # 0.1 TH/MM3 (0-0.2); EOSINOPHIL # 0.2 TH/MM3 (0-0.4); EOSINOPHIL % 3.6 % (0.0-4.0); HEMATOCRIT 39.7 % (35.0-46.0); HEMOGLOBIN 13.5 GM/DL (11.6-15.3); LYMPH % 27.1 % (9.0-44.0); LYMPHOCYTE # 1.5 TH/MM3 (1.0-4.8); MEAN CELL VOLUME 90.7 FL (80.0-100.0); MEAN CORPUSCULAR HEMOGLOBIN 30.9 PG (27.0-34.0); MEAN CORPUSCULAR HGB CONC 34.1 % (32.0-36.0); MONO % 13.8 % (0.0-8.0); MONOCYTE # 0.8 TH/MM3 (0-0.9); NEUT % 54.5 % (16.0-70.0); PLATELET COUNT 368 TH/MM3 (150-450); RED BLOOD COUNT 4.37 MIL/MM3 (4.00-5.30); RED CELL DISTRIBUTION WIDTH 14.2 % (11.6-17.2); WHITE BLOOD COUNT 5.5 TH/MM3 (4.0-11.0)
[2017-03-02] MEDS: SODIUM CHLORIDE 0.9% FLUSH 10 ML FLUSH IV FLUSH SCH ×2 (09:00→19:41)
[2017-03-02 09:05] LABS: ALBUMIN 3.1 GM/DL (3.4-5.0); AST (GOT) 14 U/L (15-37); BICARBONATE 23.3 MEQ/L (21.0-32.0); BLOOD UREA NITROGEN 7 MG/DL (7-18); CHLORIDE 110 MEQ/L (98-107); CREATININE 0.56 MG/DL (0.50-1.00); GLOMERULAR FILTRATION RATE 110 ML/MIN (>89); GLUCOSE,RANDOM 83 MG/DL (74-106); SODIUM (NA) 142 MEQ/L (136-145)
[2017-03-02 09:07] LABS: ALT (GPT) 22 U/L (10-53)
[2017-03-02 09:11] LABS: ALKALINE PHOSPHATASE 89 U/L (45-117); TOTAL BILIRUBIN ADULT 0.1 MG/DL (0.2-1.0); TOTAL PROTEIN 7.1 GM/DL (6.4-8.2); TROPONIN I LESS THAN 0.02 NG/ML (0.02-0.05)
[2017-03-02] MEDS: LEVOFLOXACIN 750 MG PREMIX INJ 150 ML IV SCH (10:13)
[2017-03-02] MEDS: DOCUSATE SODIUM 50 MG/SENNA 8.6 MG TAB PO SCH ×2 (10:13→19:41)
--- NOTE | 2017-03-02 13:20 | EKG ---
Date Performed: 03/01/2017 Time Performed: 22:24:49 PTAGE: 89 years EKG: Sinus rhythm NORMAL ECG NO PREVIOUS TRACING DOCTOR: Hasmukh Jimenez Interpretating Date/Time 03/02/2017 13:18:41
[2017-03-02] MEDS ORDERED: METOPROLOL TARTRATE 25 MG TAB PO PRN (20:00)
[2017-03-02] MEDS ORDERED: AZITHROMYCIN INJ 500 MG in SODIUM CHLOR 0.9% 250 ML INJ 250 ML IV SCH (23:00)
[2017-03-03] VITALS: BP 139/69; PULSE 68; RESP 18; TEMP 97.9; O2SAT 95
[2017-03-03] MEDS: ACETAMINOPHEN 325 MG TAB PO PRN ×2 (03:15→15:01)
[2017-03-03 04:00] VITALS: BP 136/70; PULSE 69; RESP 20; TEMP 97.6; O2SAT 92
[2017-03-03] MEDS: SODIUM CHLOR 0.9% 1000 ML INJ 1,000 ML IV SCH ×2 (04:53→14:53)
--- NOTE | 2017-03-03 07:41 | HHI.DCPOC ---
Discharge Care Plan Diagnosis: (1) Syncope (2) Head injury (3) Lung infiltrate on CT Goals to Promote Your Health * To prevent worsening of your condition and complications * To maintain your health at the optimal level Directions to Meet Your Goals Take your medications as prescribed Follow your dietary instruction Follow activity as directed Keep your appointments as scheduled Take your immunizations and boosters as scheduled If your symptoms worsen call your PCP, if no PCP go to Urgent Care Center or Emergency Room Smoking is Dangerous to Your Health. Avoid second hand smoke Call the 24-hour hour crisis hotline for domestic abuse at Allie Patton MD Mar 03, 2017 07:41
--- NOTE | 2017-03-03 07:41 | HHI.PR ---
Subjective Remarks Patient seen and examined this morning. Vitals are stable and afebrile. She denies CP or difficulty breathing. She some bilateral chest tenderness. She is without cough, fever, or wheezing. She has a doctor that she follows with regularly. She has some persistently elevated BP, required prn metoprolol. Objective Vital Signs Date Time Temp Pulse Resp B/P (MAP) Pulse Ox O2 Delivery O2 Flow Rate FiO2 03/03/17 04:00 97.6 69 20 136/70 (92) 92 03/03/17 00:00 97.9 68 18 139/69 (92) 95 03/02/17 21:16 180/83 (115) 03/02/17 20:00 97.1 96 18 197/86 (123) 96 03/02/17 16:00 97.6 84 17 154/77 (102) 94 03/02/17 12:00 97.7 82 17 129/75 (93) 96 03/02/17 08:00 97.3 85 16 131/78 (95) 95 I/O 03/02/17 03/02/17 03/02/17 03/03/17 03/03/17 03/03/17 07:00 15:00 23:00 07:00 15:00 23:00 Intake Total 1390 ml 1550 ml Balance 1390 ml 1550 ml Intake Oral 240 ml 720 ml IV Total 1150 ml 830 ml # Voids 3 3 4 # Bowel Movements 0 Result Diagram: 03/02/1782703/02/17827 Imaging Last Impressions Maxillofacial CT 03/01/172104 Signed Impressions: Service Date/Time: Wednesday, March 01, 2017 21:05 - CONCLUSION: Left frontal supraorbital soft tissue hematoma. Pablo Tee MD Pelvis X-Ray 03/01/172054 Signed Impressions: Service Date/Time: Wednesday, March 01, 2017 20:56 - CONCLUSION: Unremarkable study. Pablo Tee MD Head CT 03/01/172054 Signed Impressions: Service Date/Time: Wednesday, March 01, 2017 21:05 - CONCLUSION: Soft tissue hematoma on the left, otherwise unremarkable. Pablo Tee MD Chest X-Ray 03/01/172054 Signed Impressions: Service Date/Time: Wednesday, March 01, 2017 20:56 - CONCLUSION: No acute cardiopulmonary disease. Pablo Tee MD Chest CT 03/01/172054 Signed Impressions: Service Date/Time: Wednesday, March 01, 2017 21:13 - CONCLUSION: Slight bilateral upper lobe infiltrates and/or contusions, repeat noncontrast chest CT is suggested in 3 months as a conservative follow up.. Pablo Tee MD Cervical Spine CT 03/01/172054 Signed Impressions: Service Date/Time: Wednesday, March 01, 2017 21:05 - CONCLUSION: Slight degenerative spondylosis without any significant compromise to the thecal sac or the exiting nerve roots. Pablo Tee MD Neck CTA 03/01/17 0000 Signed Impressions: Service Date/Time: Wednesday, March 01, 2017 23:37 - CONCLUSION: Normal carotid CTA. Eric Gunn MD Head CTA 03/01/17 0000 Signed Impressions: Service Date/Time: Wednesday, March 01, 2017 23:36 - CONCLUSION: Small basilar tip aneurysm as above. Otherwise normal intracranial arteries. Eric Gunn MD Objective Remarks GENERAL: nad SKIN: Warm and dry. Left forehead hematoma HEAD: Traumatic. EYES: No scleral icterus. No injection or drainage. NECK: Supple, trachea midline. No JVD or lymphadenopathy. CARDIOVASCULAR: Regular rate and rhythm without murmurs, gallops, or rubs. Chest tenderness with palpation. RESPIRATORY: Breath sounds equal bilaterally. No accessory muscle use. GASTROINTESTINAL: Abdomen soft, non-tender, nondistended. MUSCULOSKELETAL: No cyanosis, or edema. No calf tenderness. BACK: Nontender without obvious deformity. A/P Problem List: (1) Syncope ICD Code: R55 - Syncope and collapse Status: Acute (2) Head injury ICD Code: S09.90XA - Unspecified injury of head, initial encounter Status: Acute (3) Upper extremity weakness ICD Code: R29.898 - Other symptoms and signs involving the musculoskeletal system (4) Alcohol intoxication ICD Code: F10.929 - Alcohol use, unspecified with intoxication, unspecified Assessment and Plan This is a 61-year-old female with Past medical significant for cerebral aneurysm was brought to the ER as a trauma alert after a fall. Syncope - Apparently the patient fell from standing, there is no witnessed seizure activity - ACS rule out negative - Echo pending (discussed with ECHO lab, should be done this am) - Currently on telemetry Head injury - Imaging above, significant for left forehead and supraorbital hematoma. - Analgesics - Monitor, no surgical intervention at this time Upper extremity weakness - Reported some bilateral upper extremity paralysis in the ER yesterday - Mentation was reported to be waxing and waning, likely related to the alcohol intoxication versus underlying psych vs other - CTA of head to evaluate aneurysm was performed, small basilar tip aneurysm was noted. Abnormal chest CT - CT chest showed bilateral upper lobe infiltrates versus contusions, will need to be repeated as an outpatient in 3 months Alcohol intoxication - Blood alcohol level 245 on admission - Ativan when necessary Hypertension - new diagnosis, BP persistently elevated - It was well controlled with prn metoprolol, will schedule - metoprolol 12.5 mg BID Patient initially placed on abx for abnormal CT, which was concerning for bilateral infiltrate vs. contusion. CXR was negative for infiltrate. She is without fever or leukocytosis and her lungs are clear. Will d/c abx and follow clinically. Discharge Planning Pending clinical improvement and pending ECHO results. Problem Qualifiers (1) Syncope: Qualified Codes: R55 - Syncope and collapse (2) Head injury: Qualified Codes: S09.90XA - Unspecified injury of head, initial encounter Allie Patton MD Mar 03, 2017 07:41
[2017-03-03 08:00] VITALS: BP 161/89; PULSE 73; RESP 18; TEMP 96.3; O2SAT 94
[2017-03-03] MEDS: DOCUSATE SODIUM 50 MG/SENNA 8.6 MG TAB PO SCH (08:07)
[2017-03-03] MEDS: SODIUM CHLORIDE 0.9% FLUSH 10 ML FLUSH IV FLUSH SCH (08:08)
[2017-03-03] MEDS: LEVOFLOXACIN 750 MG PREMIX INJ 150 ML IV SCH (08:08)
[2017-03-03] MEDS ORDERED: PILL SPLITTER OTHER PRN (09:00)
[2017-03-03] MEDS ORDERED: METOPROLOL TARTRATE 25 MG TAB PO SCH (09:00)
[2017-03-03] MEDS ORDERED: METO25TA3 PO (11:30)
[2017-03-03 12:00] VITALS: BP 152/82; PULSE 68; RESP 17; TEMP 96.3; O2SAT 94
[2017-03-03 16:00] VITALS: BP 159/95; PULSE 69; RESP 15; TEMP 96.2; O2SAT 91
--- NOTE | 2017-03-03 16:00 | ECHRPT ---
Indication: CARDIOMYOPATHY CONCLUSIONS Normal left ventricular size. Wall thickness is normal. The left ventricular systolic function is low normal with an estimated ejection fraction in the rang e of 50%. Trace mitral valve regurgitation. There is mild tricuspid valve regurgitation. The pulmonary valve is not well visualized. BP: / HR: Rhythm: MEASUREMENTS (Male / Female) Normal Values Technical Quality:Good 2D ECHO LV Diastolic Diameter PLAX 4.1 cm 4.2 - 5.9 / 3.9 - 5.3 cm LV Systolic Diameter PLAX 3.2 cm IVS Diastolic Thickness 1.0 cm 0.6 - 1.0 / 0.6 - 0.9 cm LVPW Diastolic Thickness 0.7 cm 0.6 - 1.0 / 0.6 - 0.9 cm LV Relative Wall Thickness 0.4 RV Internal Dim ED PLAX 2.0 cm LA Systolic Diameter LX 3.2 cm 3.0 - 4.0 / 2.7 - 3.8 cm M-MODE Aortic Root Diameter MM 3.1 cm AV Cusp Separation MM 2.1 cm DOPPLER Mitral E Point Velocity 63.2 cm/s Mitral A Point Velocity 69.6 cm/s Mitral E to A Ratio 0.9 TR Peak Velocity 232.0 cm/s TR Peak Gradient 21.5 mmHg FINDINGS LEFT VENTRICLE Normal left ventricular size. Wall thickness is normal. The left ventricular systolic function is low normal with an estimated ejection fraction in the rang e of 50%. RIGHT VENTRICLE Normal right ventricular size and systolic function. LEFT ATRIUM The left atrial size is normal. RIGHT ATRIUM The right atrial size is normal. ATRIAL SEPTUM Normal atrial septal thickness without atrial level shunting by limited color doppler interrogation. AORTA The aortic root and proximal ascending aorta are normal in size on limited imaging. MITRAL VALVE Trace mitral valve regurgitation. AORTIC VALVE Trileaflet aortic valve. No aortic valve stenosis or regurgitation. TRICUSPID VALVE There is mild tricuspid valve regurgitation. PULMONARY VALVE The pulmonary valve is not well visualized. VESSELS The inferior vena cava is normal in size. PERICARDIUM No pericardial effusion. Danny Brian MD, FACC (Electronically Signed) Final Date:03 March 2017 16:00
== END 2017-03-03 16:51 | disposition home or self-care (01) | DRG 312 ==
LOC: NEPI 20:53 → EDBD 22:55 → NEDA 22:55 → N07B 03-02 00:03
PROVIDERS: ADMIT Hospitalist; ATTEND Hospitalist
DX: R55 Syncope and collapse (principal); I67.1 Cerebral aneurysm, nonruptured; S27.322A Contusion of lung, bilateral, initial encounter; I10 Essential (primary) hypertension; F10.129 Alcohol abuse with intoxication, unspecified; S00.83XA Contusion of other part of head, initial encounter; W18.30XA Fall on same level, unspecified, initial encounter; Y90.8 Blood alcohol level of 240 mg/100 ml or more; T36.3X5A Adverse effect of macrolides, initial encounter
CPT/HCPCS: 70450; 70486; 70496; 70498; 71010; 71260; 72125; 72170; 80053; 80076; 80307; 82435; 82550; 82565; 82947; 84132; 84295; 84484; 84520; 85025; 85384; 85610; 85730; 86850; 86900; 86901; 90471; 93005; 93306; 96374; 99291; G0390; J0456; J0690; J1956; J2270; J7030; J7050; Q9967